=== PATIENT | female | born 1935 | race Caucasian/White ===

== ENCOUNTER 2018-06-23 07:43 | Inpatient (IN) | payer MEDICAID, OTHER ==
[2018-06-23 08:28] LABS: ADD MAN DIFF? NO
[2018-06-23] MEDS: ONDANSETRON 4 MG INJ IV (08:30)
[2018-06-23] MEDS: morphine 4 MG/ML VIAL IV (08:30)
[2018-06-23] MEDS: SOD CHLORIDE 0.9% 500 ML IV (08:30)
[2018-06-23 08:34] LABS: BASOPHILS % 0.2 % (0.0-2.0); EOSINOPHILS # 0.2 10^3/ul (0.0-0.5); EOSINOPHILS % 0.7 % (0.0-7.0); HEMATOCRIT 36.8 % (37.0-47.0); HEMOGLOBIN 10.9 g/dl (12.0-16.0); LYMPHOCYTES # 1.8 10^3/ul (0.8-2.9); LYMPHOCYTES % 8.8 % (15.0-51.0); MEAN CORPUSCULAR HEMOGLOBIN 22.9 pg (29.0-33.0); MEAN CORPUSCULAR HGB CONC 29.6 g/dl (32.0-37.0); MEAN CORPUSCULAR VOLUME 77.1 fl (82.0-101.0); MEAN PLATELET VOLUME 8.5 fl (7.4-10.4); MONOCYTE # 0.8 10^3/ul (0.3-0.9); NEUTROPHIL # 17.4 10^3/ul (1.6-7.5); NEUTROPHILS % 85.7 % (39.0-77.0); PLATELET COUNT 292 10^3/UL (140-415); RED BLOOD COUNT 4.77 10^6/ul (4.20-5.40); RED CELL DISTRIBUTION WIDTH 17.4 % (11.5-14.5)
[2018-06-23 08:34] LABS: WHITE BLOOD COUNT 20.3 10^3/ul (4.8-10.8)
[2018-06-23 08:50] LABS: ALANINE AMINOTRANSFERASE 12 IU/L (13-69); ALBUMIN 4.1 g/dl (3.3-4.9); ALBUMIN/GLOBULIN RATIO 1.13; ALKALINE PHOSPHATASE 117 IU/L (42-121); ANION GAP 11 (5-13); ASPARTATE AMINO TRANSFERASE 27 IU/L (15-46); BILIRUBIN,INDIRECT 0.1 mg/dl (0-1.1); BILIRUBIN,TOTAL 0.1 mg/dl (0.2-1.3); BLOOD UREA NITROGEN 20 mg/dl (7-20); CARBON DIOXIDE 26 mmol/L (21-31); CHLORIDE 105 mmol/L (97-110); CREATININE 0.63 mg/dl (0.44-1.00); GLUCOSE 140 mg/dl (70-220); LIPASE 150 U/L (23-300); POTASSIUM 3.5 mmol/L (3.5-5.1); SODIUM 142 mmol/L (135-144); TOTAL PROTEIN 7.7 g/dl (6.1-8.1)
[2018-06-23 09:39] LABS: ADD UMIC YES; UR ASCORBIC ACID NEGATIVE (NEGATIVE); UR BACTERIA FEW /HPF (NONE SEEN); UR BILIRUBIN (Dip) NEGATIVE (NEGATIVE); UR BLOOD (Dip) NEGATIVE (NEGATIVE); UR CLARITY SLIGHTLY CLOUDY (CLEAR); UR COLOR YELLOW (YELLOW); UR GLUCOSE (Dip) NEGATIVE (NEGATIVE); UR KETONES (Dip) NEGATIVE (NEGATIVE); UR LEUKOCYTE ESTERASE (Dip) NEGATIVE Leu/ul (NEGATIVE); UR MUCUS FEW /HPF (NONE SEEN); UR NITRITE (Dip) POSITIVE (NEGATIVE); UR RBC 0 /HPF (0-5); UR SPECIFIC GRAVITY (Dip) 1.017 (1.003-1.030); UR TOTAL PROTEIN (Dip) NEGATIVE (NEGATIVE); UR UROBILINOGEN (Dip) NEGATIVE (NEGATIVE); UR WBC 3 /HPF (0-5)
[2018-06-23] MEDS ORDERED: ONDANSETRON 4 MG INJ IV ×2 (10:00→12:30)
[2018-06-23] MEDS ORDERED: ACETAMINOPHEN 325 MG TAB PO (10:00)
[2018-06-23] MEDS: metroNIDAZOLE 500 MG/NS (PMX) 100 ML IVPB ×3 (10:07→22:16)
[2018-06-23] MEDS: SODIUM CHLORIDE 0.9% 1L BAG IV* (10:07)
[2018-06-23] MEDS: LEVOFLOXACIN 500MG/D5W (PMX) 100 ML IVPB (10:55)
[2018-06-23] MEDS ORDERED: NACL 0.9% 3 ML SYG IV (12:30)
[2018-06-23] MEDS: DICYCLOMINE 10 MG CAP PO ×3 (14:03→20:28)
[2018-06-23] MEDS: LEVETIRACETAM 500 MG TAB PO ×2 (14:04→20:28)
[2018-06-23] MEDS: LISINOPRIL 5 MG TAB PO (14:04)
[2018-06-23] MEDS: ACETAMINOPHEN 325 MG TAB PO ×2 (14:05→21:46)
[2018-06-23] MEDS: SOD CHLORIDE 0.9% 1,000 ML IV (14:11)
[2018-06-23 14:50] LABS: LACTIC ACID 2.3 mmol/L (0.5-2.0)
[2018-06-23] MEDS: CIPROFLOXACIN 400MG/D5W 200 ML IVPB (20:29)
[2018-06-23] MEDS: FAMOTIDINE 20 MG INJ IV (20:31)
[2018-06-23 21:52] LABS: LACTIC ACID 2.7 mmol/L (0.5-2.0)
[2018-06-24] MEDS: SOD CHLORIDE 0.9% 1,000 ML IV ×3 (00:49→13:26)
[2018-06-24] MEDS: ACETAMINOPHEN 325 MG TAB PO (05:10)
[2018-06-24] MEDS: metroNIDAZOLE 500 MG/NS (PMX) 100 ML IVPB ×3 (05:49→21:11)
[2018-06-24 06:41] LABS: ADD MAN DIFF? NO
[2018-06-24 06:47] LABS: WHITE BLOOD COUNT 15.2 10^3/ul (4.8-10.8)
[2018-06-24 06:47] LABS: BASOPHILS % 0.3 % (0.0-2.0); EOSINOPHILS # 0.1 10^3/ul (0.0-0.5); EOSINOPHILS % 0.8 % (0.0-7.0); HEMATOCRIT 29.9 % (37.0-47.0); HEMOGLOBIN 8.9 g/dl (12.0-16.0); LYMPHOCYTES # 3.2 10^3/ul (0.8-2.9); MEAN CORPUSCULAR HEMOGLOBIN 22.9 pg (29.0-33.0); MEAN CORPUSCULAR HGB CONC 29.8 g/dl (32.0-37.0); MEAN CORPUSCULAR VOLUME 77.1 fl (82.0-101.0); MEAN PLATELET VOLUME 8.8 fl (7.4-10.4); MONOCYTE # 0.8 10^3/ul (0.3-0.9); MONOCYTES % 5.3 % (0.0-11.0); NEUTROPHILS % 72.1 % (39.0-77.0); PLATELET COUNT 248 10^3/UL (140-415); RED BLOOD COUNT 3.88 10^6/ul (4.20-5.40); RED CELL DISTRIBUTION WIDTH 17.8 % (11.5-14.5)
[2018-06-24 07:17] LABS: LACTIC ACID 1.6 mmol/L (0.5-2.0)
[2018-06-24 07:37] LABS: ALANINE AMINOTRANSFERASE 20 IU/L (13-69); ALKALINE PHOSPHATASE 81 IU/L (42-121); ANION GAP 6 (5-13); ASPARTATE AMINO TRANSFERASE 19 IU/L (15-46); BILIRUBIN,INDIRECT 0.3 mg/dl (0-1.1); BILIRUBIN,TOTAL 0.3 mg/dl (0.2-1.3); BLOOD UREA NITROGEN 9 mg/dl (7-20); CALCIUM 8.2 mg/dl (8.4-10.2); CARBON DIOXIDE 25 mmol/L (21-31); CHLORIDE 109 mmol/L (97-110); CREATININE 0.76 mg/dl (0.44-1.00); GLUCOSE 99 mg/dl (70-220); MAGNESIUM 1.7 mg/dl (1.7-2.5); POTASSIUM 3.7 mmol/L (3.5-5.1); SODIUM 140 mmol/L (135-144)
[2018-06-24] MEDS: LEVETIRACETAM 500 MG TAB PO ×2 (08:46→21:11)
[2018-06-24] MEDS: FAMOTIDINE 20 MG INJ IV ×2 (08:46→21:11)
[2018-06-24] MEDS: ASPIRIN (EC) 81 MG TAB PO (08:46)
[2018-06-24] MEDS: DICYCLOMINE 10 MG CAP PO ×4 (08:46→23:51)
[2018-06-24] MEDS: LISINOPRIL 5 MG TAB PO (09:00)
[2018-06-24] MEDS: CIPROFLOXACIN 400MG/D5W 200 ML IVPB ×2 (09:20→21:11)
[2018-06-25] MEDS: SOD CHLORIDE 0.9% 1,000 ML IV ×3 (02:53→17:30)
[2018-06-25] MEDS: metroNIDAZOLE 500 MG/NS (PMX) 100 ML IVPB ×4 (05:40→22:00)
[2018-06-25 07:20] LABS: ADD MAN DIFF? NO
[2018-06-25 07:30] LABS: BASOPHILS % 0.3 % (0.0-2.0); EOSINOPHILS # 0.2 10^3/ul (0.0-0.5); EOSINOPHILS % 1.3 % (0.0-7.0); HEMATOCRIT 28.5 % (37.0-47.0); HEMOGLOBIN 8.7 g/dl (12.0-16.0); LYMPHOCYTES # 2.4 10^3/ul (0.8-2.9); LYMPHOCYTES % 20.4 % (15.0-51.0); MEAN CORPUSCULAR HEMOGLOBIN 23.4 pg (29.0-33.0); MEAN CORPUSCULAR HGB CONC 30.5 g/dl (32.0-37.0); MEAN CORPUSCULAR VOLUME 76.6 fl (82.0-101.0); MEAN PLATELET VOLUME 9.2 fl (7.4-10.4); MONOCYTE # 0.6 10^3/ul (0.3-0.9); MONOCYTES % 4.9 % (0.0-11.0); NEUTROPHIL # 8.4 10^3/ul (1.6-7.5); NEUTROPHILS % 72.7 % (39.0-77.0); PLATELET COUNT 260 10^3/UL (140-415); RED BLOOD COUNT 3.72 10^6/ul (4.20-5.40); RED CELL DISTRIBUTION WIDTH 17.7 % (11.5-14.5)
[2018-06-25 07:30] LABS: WHITE BLOOD COUNT 11.5 10^3/ul (4.8-10.8)
[2018-06-25 07:44] LABS: IRON 16 ug/dl (35-150)
[2018-06-25 07:45] LABS: ANION GAP 7 (5-13); BLOOD UREA NITROGEN 4 mg/dl (7-20); CALCIUM 8.2 mg/dl (8.4-10.2); CARBON DIOXIDE 23 mmol/L (21-31); CHLORIDE 112 mmol/L (97-110); CREATININE 0.55 mg/dl (0.44-1.00); GLUCOSE 101 mg/dl (70-220); POTASSIUM 3.1 mmol/L (3.5-5.1); SODIUM 142 mmol/L (135-144)
[2018-06-25 07:54] LABS: % IRON SATURATION 5 % SAT (22-52); TOTAL IRON BINDING CAPACITY 312 ug/dl (241-421)
[2018-06-25] MEDS: CIPROFLOXACIN 400MG/D5W 200 ML IVPB ×2 (08:34→21:55)
[2018-06-25] MEDS: LEVETIRACETAM 500 MG TAB PO ×2 (08:34→21:55)
[2018-06-25] MEDS: DICYCLOMINE 10 MG CAP PO ×4 (08:34→21:00)
[2018-06-25] MEDS: ASPIRIN (EC) 81 MG TAB PO (08:34)
[2018-06-25] MEDS: LISINOPRIL 5 MG TAB PO (08:35)
[2018-06-25] MEDS: FAMOTIDINE 20 MG INJ IV ×2 (08:35→21:55)
[2018-06-25 08:38] LABS: FERRITIN 34.9 ng/ml (11.1-264.0)
[2018-06-25] MEDS: POTASSIUM CHLORIDE (SR) 20 MEQ TAB PO (12:20)
[2018-06-25] MEDS: MAGNESIUM SULFATE 1 GM/D5W 100 ML IVPB (12:20)
[2018-06-25] MEDS: SOD FERRIC GLUC COMPLX 125 MG in SOD CHLORIDE 0.9% 100 ML IVPB (16:09)
[2018-06-25] MEDS: ACETAMINOPHEN 325 MG TAB PO ×2 (22:04)
[2018-06-26] MEDS: SOD CHLORIDE 0.9% 1,000 ML IV ×2 (00:15→10:03)
[2018-06-26] MEDS: ALPRAZOLAM 0.5 MG TAB PO (02:18)
[2018-06-26] MEDS: CIPROFLOXACIN 500 MG TAB PO (05:48)
[2018-06-26] MEDS: metroNIDAZOLE 500 MG TAB PO (05:48)
[2018-06-26 07:37] LABS: ADD MAN DIFF? NO
[2018-06-26 07:44] LABS: BASOPHILS % 0.4 % (0.0-2.0); EOSINOPHILS # 0.2 10^3/ul (0.0-0.5); EOSINOPHILS % 2.1 % (0.0-7.0); HEMATOCRIT 29.1 % (37.0-47.0); HEMOGLOBIN 8.8 g/dl (12.0-16.0); LYMPHOCYTES # 2.8 10^3/ul (0.8-2.9); LYMPHOCYTES % 29.7 % (15.0-51.0); MEAN CORPUSCULAR HGB CONC 30.2 g/dl (32.0-37.0); MONOCYTE # 0.5 10^3/ul (0.3-0.9); MONOCYTES % 4.9 % (0.0-11.0); NEUTROPHIL # 5.8 10^3/ul (1.6-7.5); NEUTROPHILS % 62.7 % (39.0-77.0); PLATELET COUNT 262 10^3/UL (140-415); RED BLOOD COUNT 3.83 10^6/ul (4.20-5.40); RED CELL DISTRIBUTION WIDTH 18.1 % (11.5-14.5)
[2018-06-26 07:44] LABS: WHITE BLOOD COUNT 9.3 10^3/ul (4.8-10.8)
[2018-06-26 07:59] LABS: ANION GAP 12 (5-13); BLOOD UREA NITROGEN 4 mg/dl (7-20); CALCIUM 8.4 mg/dl (8.4-10.2); CARBON DIOXIDE 23 mmol/L (21-31); CHLORIDE 110 mmol/L (97-110); CREATININE 0.55 mg/dl (0.44-1.00); GLUCOSE 118 mg/dl (70-220); POTASSIUM 3.4 mmol/L (3.5-5.1); SODIUM 145 mmol/L (135-144)
[2018-06-26 08:04] LABS: MAGNESIUM 2.1 mg/dl (1.7-2.5)
[2018-06-26] MEDS: DICYCLOMINE 10 MG CAP PO ×2 (09:00→10:49)
[2018-06-26] MEDS: ASPIRIN (EC) 81 MG TAB PO (10:10)
[2018-06-26] MEDS: LEVETIRACETAM 500 MG TAB PO (10:10)
[2018-06-26] MEDS: FAMOTIDINE 20 MG INJ IV (10:10)
[2018-06-26] MEDS: LISINOPRIL 5 MG TAB PO (10:12)
[2018-06-26] MEDS: POTASSIUM CHLORIDE (SR) 20 MEQ TAB PO (12:28)
== END 2018-06-26 13:40 | disposition home or self-care (01) | DRG 872 ==
LOC: PP2 06-25 08:41 → E/R 07:43 → PP2 09:56
DX: A41.9 Sepsis, unspecified organism (principal); I10 Essential (primary) hypertension; E78.5 Hyperlipidemia, unspecified; G40.909 Epilepsy, unspecified, not intractable, without status epilepticus; K52.9 Noninfective gastroenteritis and colitis, unspecified; D50.9 Iron deficiency anemia, unspecified; I69.30 Unspecified sequelae of cerebral infarction
CPT/HCPCS: 36415; 71045; 74176; 80048; 80053; 81001; 82728; 83540; 83605; 83690; 83735; 84100; 85025; 87040; 87086; 90686; 96361; 96374; 96375; 99285-25

== ENCOUNTER 2018-12-01 22:44 | Emergency (ER) | payer OTHER ==
[2018-12-02 02:54] LABS: URINE BLOOD (Dip) POC 2+ (NEGATIVE); URINE GLUCOSE (Dip) POC Negative (NEGATIVE); URINE KETONES (Dip) POC Negative (NEGATIVE); URINE LEUKOCYTE EST (Dip) POC 2+ (NEGATIVE); URINE NITRITE (Dip) POC Positive (NEGATIVE); URINE TOTAL PROTEIN POC 1+ (NEGATIVE)
[2018-12-02] MEDS: CEFTRIAXONE 1 GM INJ IM (03:13)
== END 2018-12-02 03:30 | disposition home or self-care (01) ==
LOC: E/R 22:44
DX: N30.00 Acute cystitis without hematuria (principal); I10 Essential (primary) hypertension; Z79.82 Long term (current) use of aspirin
CPT/HCPCS: 81003; 87086; 96372; 99284-25